=== PATIENT | female | born 1960 | race Caucasian/White ===

== ENCOUNTER 2019-09-12 21:10 | Inpatient (IN) | payer MEDICAID ==
[~2019-09-12] VITALS: Ht 157.5 cm; Wt 82.3 kg
[2019-09-12] MEDS ORDERED: CLONIDINE 0.1MG TABLET PO ONE (22:00)
[2019-09-12] MEDS ORDERED: NITROGLYCERIN 0.4MG TABLET SL SL PRN (22:00)
[2019-09-12] MEDS ORDERED: ASPIRIN 81MG TABLET PO ONE (22:00)
[2019-09-12 22:49] LABS: BASOPHILS % 0.6 % (0.0-2.0); EOSINOPHILS % 0.9 % (0.0-5.0); HEMATOCRIT. 32.9 % (36.0-48.0); HEMOGLOBIN. 10.6 g/dL (12.0-16.0); LYMPHOCYTES % 7.9 % (20.0-50.0); MEAN CORPUSCULAR HEMOGLOBIN 29.4 pg (28.0-32.0); MEAN CORPUSCULAR VOLUME 91.1 fL (81.0-99.0); MEAN PLATELET VOLUME 10.2 fl (7.4-10.4); MONOCYTES % 8.6 % (2.0-8.0); PLATELET 344 x1000/uL (130-400); RED BLOOD CELL COUNT 3.62 mill/uL (4.2-5.4)
[2019-09-12 22:53] LABS: CHLORIDE 112 mEq/L (98-107)
[2019-09-12 22:58] LABS: D-DIMER 0.41 mg/L FEU (<0.50); PARTIAL THROMBOPLASTIN TIME 29.6 sec (23.4-31.0); PROTHROMBIN TIME 9.9 sec (9.6-11.0)
[2019-09-12] MEDS ORDERED: LEVOFLOXACIN 750MG PREMIX 150 ML IV ONE (23:45)
[2019-09-12] MEDS ORDERED: SODIUM CHLORIDE 0.9% 1000ML BAG (SEPSIS BOLUS) IV ONE (23:45)
[2019-09-12] MEDS ORDERED: ONDANSETRON HCL 4MG/2ML INJ IV STA (23:46)
[2019-09-12] MEDS ORDERED: MORPHINE SULFATE 4 MG/ML CPJ (NOT FOR IM USE) IV STA (23:46)
[2019-09-13 02:20] LABS: CLARITY URINE CLEAR (CLEAR); COLOR URINE YELLOW (YELLOW); KETONES URINE NEGATIVE (NEGATIVE); LEUKOCYTE ESTERASE URINE NEGATIVE (NEGATIVE); NITRITE URINE NEGATIVE (NEGATIVE); OCCULT BLOOD URINE TRACE (NEGATIVE); PROTEIN URINE 2+ (NEGATIVE); UROBILINOGEN URINE 0.2 E.U./dL (0.2-1.0)
[2019-09-13] MEDS ORDERED: ONDANSETRON HCL 4MG/2ML INJ IV PRN (09:45)
[2019-09-13] MEDS ORDERED: MORPHINE SULFATE 2 MG/ML CPJ (NOT FOR IM USE) IV PRN (10:00)
[2019-09-13] MEDS ORDERED: LORAZEPAM 2MG/ML CPJ IV PRN (10:30)
[2019-09-13] MEDS ORDERED: DEXTROSE 50% WATER 50ML SYRINGE IV PRN (10:30)
[2019-09-13 12:00] VITALS: BP 163/79
[2019-09-13] MEDS: BLOOD SUGAR DIAGNOSTIC STRIP TEST SCH ×3 (12:10→21:00)
[2019-09-13] MEDS: INSULIN LISPRO 100 UNITS/ML SUBCUT SCH ×3 (12:40→21:42)
[2019-09-13] MEDS ORDERED: HYDROCODONE/ACETAMINOPHEN 5/325MG TABLET PO PRN (13:18)
[2019-09-13] MEDS ORDERED: NIFE-33 MT (13:45)
[2019-09-13] MEDS ORDERED: DOCU250C14 MT (13:45)
[2019-09-13] MEDS ORDERED: LEVO50TA8 PO (13:45)
[2019-09-13] MEDS ORDERED: ASPI-1158 PO (13:45)
[2019-09-13] MEDS ORDERED: HYDR-2510 MT (13:45)
[2019-09-13] MEDS ORDERED: ATOR20TA65 PO (13:45)
[2019-09-13] MEDS ORDERED: GABA-531 PO (13:45)
[2019-09-13] MEDS ORDERED: BENA40TA9 MT (13:45)
[2019-09-13] MEDS ORDERED: FERR325T6 PO (13:45)
[2019-09-13] MEDS ORDERED: CLONIDINE 0.1MG TABLET PO SCH (15:00)
[2019-09-13] MEDS ORDERED: SODIUM CHLORIDE 0.9% 1,000 ML IV SCH (15:00)
[2019-09-13] MEDS ORDERED: HYDRALAZINE HCL 50MG TABLET PO NR (15:15)
[2019-09-13 16:00] VITALS: BP 188/73
[2019-09-13 16:54] LABS: HDL CHOLESTEROL 56 mg/dL (40-59); LDL CHOLESTEROL 58 mg/dL (5-100)
[2019-09-13] MEDS ORDERED: ENOXAPARIN 30MG/0.3ML SYR SUBCUT SCH (17:00)
[2019-09-13 18:06] VITALS: BP 179/84
[2019-09-13 20:00] VITALS: BP 179/84
[2019-09-13 20:45] VITALS: BP 179/84
[2019-09-13] MEDS ORDERED: METOPROLOL TARTRATE 50MG TABLET PO SCH (21:00)
[2019-09-13] MEDS ORDERED: LIDOCAINE 5% PATCH TOP SCH (21:00)
[2019-09-13] MEDS ORDERED: AMLODIPINE 5MG TABLET PO SCH (21:00)
[2019-09-14] MEDS ORDERED: NAPROXEN 375MG TABLET PO SCH (07:40)
[2019-09-14] MEDS ORDERED: ASPIRIN 81MG TABLET PO SCH (09:00)
== END 2019-09-13 22:30 | disposition short-term general hospital (02) | DRG 203 ==
LOC: ER 21:10 → 8WST 09-13 00:46 → ENRESERV 09-13 09:44
PROVIDERS: ADMIT Internal Medicine; ATTEND Internal Medicine
DX: R07.89 Other chest pain (principal); N17.0 Acute kidney failure with tubular necrosis; I12.9 Hypertensive chronic kidney disease with stage 1 through stage 4 chronic kidney disease, or unspecified chronic kidney disease; E11.22 Type 2 diabetes mellitus with diabetic chronic kidney disease; E87.8 Other disorders of electrolyte and fluid balance, not elsewhere classified; E44.1 Mild protein-calorie malnutrition; M75.52 Bursitis of left shoulder; D64.9 Anemia, unspecified; E66.01 Morbid (severe) obesity due to excess calories; I16.0 Hypertensive urgency; M19.012 Primary osteoarthritis, left shoulder; M54.10 Radiculopathy, site unspecified; N18.2 Chronic kidney disease, stage 2 (mild); Z79.899 Other long term (current) drug therapy; Z68.33 Body mass index [BMI] 33.0-33.9, adult; Z79.82 Long term (current) use of aspirin
CPT/HCPCS: 36415; 70551; 71045; 72141; 73030; 80053; 80061; 81003; 82962; 83036; 83605; 83880; 84443; 84484; 85025; 85379; 87077; 87804; 93005; 97162; 99285; J1650; J1815; J1956; J2060; J2270; J2405; J7030